=== PATIENT | male | born 1990 | race Caucasian/White ===

== ENCOUNTER 2018-11-27 02:51 | Emergency (ER) | payer OTHER ==
[~2018-11-27] VITALS: Ht 182.9 cm; Wt 77.1 kg
[2018-11-27] MEDS ORDERED: STRATTERA80 MG PO (02:58)
[2018-11-27] MEDS ORDERED: ZYPREXA15 MG PO (02:58)
[2018-11-27] MEDS ORDERED: HYDROXYZINE HCL25 MG PO (02:59)
== END 2018-11-27 03:34 | disposition home or self-care (01) ==
LOC: ED 02:51
DX: K52.9 Noninfective gastroenteritis and colitis, unspecified (principal); F41.9 Anxiety disorder, unspecified; F43.10 Post-traumatic stress disorder, unspecified; F17.200 Nicotine dependence, unspecified, uncomplicated; Z79.899 Other long term (current) drug therapy
CPT/HCPCS: 99283

== ENCOUNTER 2019-01-11 06:26 | Emergency (ER) | payer OTHER ==
[~2019-01-11] VITALS: Ht 182.9 cm; Wt 77.1 kg
[~2019-01-11 06:26] MED LIST: HYDROXYZINE HCL25 MG PO; STRATTERA80 MG PO; ZYPREXA15 MG PO
--- OUTSIDE RECORDS SUMMARY | 2019-01-11 06:28 | XMS ---
PreManage Notification: SILVIA PARSON Security Staff Development Coordinator Events No recent Security Events currently on file CRITERIA MET - [facility] There are no care providers on record at this time. Roberto has no Care Guidelines for this patient. Bella VISIT COUNT (12 MO.) 2 DALIA Sanchez TOTAL 2 NOTE: Visits indicate total known visits. ED/UCC VISIT TRACKING (12 MO.) 01/11/2019 06:26 [place] [place] TYPE: Emergency COMPLAINT: - ABD PAIN 11/27/2018 02:52 [place] TYPE: Emergency COMPLAINT: - POSS DRUGED DIAGNOSES: - Anxiety disorder, unspecified - Post-traumatic stress disorder, unspecified - Nicotine dependence, unspecified, uncomplicated - Noninfective gastroenteritis and colitis, unspecified - Nausea with vomiting, unspecified - Other detention (current) drug therapy INPATIENT VISIT TRACKING (12 MO.) No inpatient visits to display in this time frame [email or web address]
[2019-01-11] MEDS ORDERED: ZOFRAN4 MG PO ×2 (06:39→08:53)
[2019-01-11] MEDS ORDERED: IMODIUM A-D2 M2 PO (08:53)
== END 2019-01-11 09:23 | disposition home or self-care (01) ==
LOC: ED 06:26
DX: R19.7 Diarrhea, unspecified (principal); F17.200 Nicotine dependence, unspecified, uncomplicated; F41.9 Anxiety disorder, unspecified; F90.9 Attention-deficit hyperactivity disorder, unspecified type; Z79.899 Other long term (current) drug therapy
CPT/HCPCS: 80053; 81001; 83690; 85025; 96361; 96374; 96375; 99284-25; J2405; J2550; J7030

== ENCOUNTER → 2022-05-15 | Emergency (ER) | payer OTHER ==
[~2022-05-15] VITALS: Ht 182.9 cm; Wt 77.1 kg
[~2022-05-15] MED LIST changes: +ADDERALL XR 1010 MG PO; +AMPHETAMINE SALT5 MG PO; +CLONAZEPAM0.5 M1 PO; +GABAPENTIN600 MG PO; +IMODIUM A-D2 M2 PO; +LAMOTRIGINE ODT50 MG PO; +LAMOTRIGINE100 MG PO; +SERTRALINE HCL25 MG PO; +ZOFRAN4 MG PO
--- OUTSIDE RECORDS SUMMARY | 2022-05-15 10:24 | XMS ---
PreManage Notification: SILVIA PARSON Security Foxing Cutting Machine Operator Events No recent Security Events currently on file CRITERIA MET - [facility] - 2 Visits in 30 Days - Group Notification CARE PROVIDERS CAREN DRIVER Physician Erp Engineer 02/11/2019-Current PHONE: [phone] Care Guidelines exist for the following facilities: [facility] ( 09/11/2020 ) Care History Medical/Surgical 02/11/2019 [facility] [place] - [facility] CALLED PATIENT AND LEFT A VOICEMAIL- NO PCP- HELP PATIENT WITH ESTABLISHING WITH A PCP. - SENT NO PCP LETTER TO PATIENT. ECatalinaDCatalina VISIT COUNT (12 MO.) [facility] TOTAL 3 NOTE: Visits indicate total known visits. ED/UCC VISIT TRACKING (12 MO.) 05/15/2022 10:23 DALIA [place] TYPE: Emergency COMPLAINT: - MEDICAL CLEARANCE 05/14/2022 14:07 DALIA [place] TYPE: Emergency COMPLAINT: - MEDICAL CLEARANCE 02/01/2022 17:07 [facility] Dana Candelario [place] TYPE: Emergency DIAGNOSES: 1. Pain in left foot 1. Tinea pedis 2. Other stimulant abuse, uncomplicated 3. Nicotine dependence, cigarettes, uncomplicated INPATIENT VISIT TRACKING (12 MO.) No inpatient visits to display in this time frame [email or web address]
== END ==
LOC: ED 10:23
DX: Z76.0 Encounter for issue of repeat prescription (principal); F25.9 Schizoaffective disorder, unspecified; F17.200 Nicotine dependence, unspecified, uncomplicated
CPT/HCPCS: 99281

== ENCOUNTER 2022-10-29 11:15 | Emergency (ER) | payer OTHER ==
[~2022-10-29] VITALS: Ht 182.9 cm; Wt 73.0 kg
--- OUTSIDE RECORDS SUMMARY | 2022-10-29 11:18 | XMS ---
PreManage Notification: SILVIA PARSON Security Optometric Coordinator Events 1 event(s) in the past 18 months Most recent security events: Elopement at [facility] 05/14/2022 14:07 - Patient eloped before treatment completed. - Patient with suicidal and/or homicidal ideations eloped. - Patient eloped with IV in place. Details: PATIENT LWBS CRITERIA MET - Group Notification - PDMP CARE PROVIDERS -Hank- Dentist: Urban Renewal Manager [facility] PHONE: [phone] CAREN DRIVER Physician 02/11/2019-Current PHONE: [phone] Care Guidelines exist for the following facilities: [facility] [place] ( 09/11/2020 ) Care History Medical/Surgical 02/11/2019 [facility] - [facility] CALLED PATIENT AND LEFT A VOICEMAIL- NO PCP- HELP PATIENT WITH ESTABLISHING WITH A PCP. - SENT NO PCP LETTER TO PATIENT. Bella VISIT COUNT (12 MO.) [address] [place], [place] [address]CatalinaCatalina 3 [facility] TOTAL 4 NOTE: Visits indicate total known visits. ED/UCC VISIT TRACKING (12 MO.) [facility] [place] [facility] COMPLAINT: - MEDICAL CLEARANCE 05/15/2022 10:23 DALIA Hardin TYPE: Emergency COMPLAINT: - MEDICAL CLEARANCE DIAGNOSES: - Schizoaffective disorder, unspecified - Nicotine dependence, unspecified, uncomplicated - Encounter for issue of repeat prescription 05/14/2022 14:07 DALIA Hardin TYPE: Emergency COMPLAINT: - MEDICAL CLEARANCE 02/01/2022 17:07 [facility] Dana MILLER TYPE: Emergency DIAGNOSES: 1. Pain in left foot 1. Tinea pedis 2. Other stimulant abuse, uncomplicated 3. Nicotine dependence, cigarettes, uncomplicated INPATIENT VISIT TRACKING (12 MO.) No inpatient visits to display in this time frame [email or web address]
[2022-10-29] MEDS ORDERED: GABAPENTIN300 MG PO (18:53)
[2022-10-29] MEDS ORDERED: ATOMOXETINE HCL25 MG PO (18:53)
[2022-10-29] MEDS ORDERED: MIRTAZAPINE15 MG PO (18:54)
[2022-10-29] MEDS ORDERED: LAMOTRIGINE25 MG PO (18:58)
== END 2022-10-30 13:36 | disposition other institution, planned readmission (95) ==
LOC: ED 11:15
DX: F25.9 Schizoaffective disorder, unspecified (principal); F17.200 Nicotine dependence, unspecified, uncomplicated; Z79.899 Other long term (current) drug therapy; Z20.822 Contact with and (suspected) exposure to COVID-19
CPT/HCPCS: 36415; 80053; 84443; 85025; A9270; G0480; U0003

== ENCOUNTER → 2022-11-04 | Emergency (ER) | payer OTHER ==
[~2022-11-04] VITALS: Ht 182.9 cm; Wt 80.1 kg
[~2022-11-04] MED LIST changes: +ATOMOXETINE HCL25 MG PO; +GABAPENTIN300 MG PO; +LAMOTRIGINE25 MG PO; +MIRTAZAPINE15 MG PO
--- OUTSIDE RECORDS SUMMARY | 2022-11-04 11:30 | XMS ---
PreManage Notification: SILVIA PARSON Security Business Intelligence Manager Events 1 event(s) in the past 18 months Most recent security events: Elopement at [facility] 05/14/2022 14:07 - Patient eloped before treatment completed. - Patient with suicidal and/or homicidal ideations eloped. - Patient eloped with IV in place. Details: PATIENT LWBS CRITERIA MET - PDMP - Group Notification - [facility] - 2 Visits in 30 Days CARE PROVIDERS -Hank- Dentist: Cognos Consultant [facility] PHONE: [phone] CAREN DRIVER Physician 02/11/2019-[facility] PHONE: [phone] Care Guidelines exist for the following facilities: [facility] [place] ( 09/11/2020 ) Care History Medical/Surgical 02/11/2019 [facility] - [facility] CALLED PATIENT AND LEFT A VOICEMAIL- NO PCP- HELP PATIENT WITH ESTABLISHING WITH A PCP. - SENT NO PCP LETTER TO PATIENT. EMauricio VISIT COUNT (12 MO.) [facility] [address] [place] [address] TOTAL 5 NOTE: Visits indicate total known visits. ED/UCC VISIT TRACKING (12 MO.) 11/04/2022 11:27 [facility] [place] TYPE: Emergency COMPLAINT: - MEDICAL CLEARANCE 10/29/2022 11:16 DALIA Cant[place] TYPE: Emergency COMPLAINT: - MEDICAL CLEARANCE DIAGNOSES: - Schizoaffective disorder, unspecified - Nicotine dependence, unspecified, uncomplicated - Other mcfp (current) drug therapy - Contact with and (suspected) exposure to COVID- 05/15/2022 10:23 DALIA Hardin TYPE: Emergency COMPLAINT: - MEDICAL CLEARANCE DIAGNOSES: - Encounter for issue of repeat prescription - Schizoaffective disorder, unspecified - Nicotine dependence, unspecified, uncomplicated 05/14/2022 14:[address] [facility] [address] [facility] [place] TYPE: Emergency COMPLAINT: - MEDICAL CLEARANCE 02/01/2022 17:07 [facility] Arjun MILLER TYPE: Emergency DIAGNOSES: 1. Tinea pedis 1. Pain in left foot 2. Other stimulant abuse, uncomplicated 3. Nicotine dependence, cigarettes, uncomplicated INPATIENT VISIT TRACKING (12 MO.) No inpatient visits to display in this time frame [email or web address]
== END ==
LOC: ED 11:27
DX: R44.1 Visual hallucinations (principal); R44.0 Auditory hallucinations; F17.200 Nicotine dependence, unspecified, uncomplicated; Z79.899 Other long term (current) drug therapy; Z20.822 Contact with and (suspected) exposure to COVID-19
CPT/HCPCS: 36415; 80053; 81003; 84443; 85025; A9270; A9270-GY; C9803; G0480; U0003